=== PATIENT | male | born 1945 | race Caucasian/White ===

== ENCOUNTER 2017-10-28 07:01 | Day surgery (SDC) | payer OTHER, MEDICAID ==
[~2017-10-28] VITALS: Ht 172.7 cm; Wt 67.1 kg
[~2017-10-28 07:01] MED LIST: BALANCED SALT IRRIG SOLN COMB1 500ML OP ONE
[2017-10-28] MEDS ORDERED: MIDAZOLAM HCL 2 MG/2 ML VIAL ONE (09:32)
[2017-10-28] MEDS ORDERED: LIDOCAINE HCL/PF 1% 10 MG/ML 5ML VIAL ONE (09:47)
[2017-10-28] MEDS ORDERED: PROPOFOL 200MG/20ML VIAL IV ONE (09:47)
[2017-10-28] MEDS ORDERED: SODIUM CHLORIDE 0.9% 1,000 ML IV ONE (09:59)
[2017-10-28] MEDS ORDERED: ONDANSETRON HCL 4MG/2ML INJ IV PRN (10:00)
[2017-10-28] MEDS ORDERED: IBUPROFEN 600MG TABLET PO NR (10:00)
[2017-10-28] MEDS ORDERED: HYALURONATE SODIUM 14 MG/ML 0.85ML SYRINGE IO ONE (10:04)
[2017-10-28] MEDS ORDERED: LABETALOL HCL 5MG/ML VIAL 20ML IV ONE (10:08)
[2017-10-28] MEDS ORDERED: NEO/POLYMYX B SULF/DEXAMETH OPHTH OINT 3.5GM ONE (14:12)
[2017-10-28] MEDS ORDERED: BUPIVACAINE HCL/PF 0.75% (7.5MG/ML) 10ML ONE (14:12)
[2017-10-28] MEDS ORDERED: LIDOCAINE HCL/PF 2% 20 MG/ML 10ML VIAL ONE (14:12)
[2017-10-28] MEDS ORDERED: BALANCED SALT IRRIG SOLN 15ML ONE (14:12)
[2017-10-28] MEDS ORDERED: PREDNISOLONE ACETATE 1% OPHTH DROPS 1ML ONE (14:12)
[2017-10-28] MEDS ORDERED: OFLOXACIN 0.3% OPHTH SOLN 5ML ONE (14:12)
[2017-10-28] MEDS ORDERED: LIDOCAINE HCL 2%/EPINEPHRINE 1:100,000 20 ML VIAL INFIL ONE (14:12)
== END 2017-10-28 11:30 | disposition home or self-care (01) ==
LOC: OR 07:01
PROVIDERS: ATTEND Ophthalmology
DX: H21.542 Posterior synechiae (iris), left eye (principal); H21.42 Pupillary membranes, left eye; H40.89 Other specified glaucoma; E11.9 Type 2 diabetes mellitus without complications; E78.00 Pure hypercholesterolemia, unspecified; I10 Essential (primary) hypertension; Z79.899 Other long term (current) drug therapy; Z88.0 Allergy status to penicillin
CPT/HCPCS: 65875; 67028; 82962; J2250; J3490; J7120; J2704